=== PATIENT | female | born 1960 | race Caucasian/White ===

== ENCOUNTER → 2016-07-05 | Outpatient (CLI) | payer OTHER ==
--- NOTE | 2016-07-05 15:28 | REPMRS ---
Patient History The patient states she had a clinical breast exam in June 2016. Family history of prostate cancer in father at age 50 or over and colorectal cancer in maternal grandfather at age 50 or over. Taking hormonal contraceptives for 16 years. Digital Mammo Screening Bilat: July 05, 2016 - Exam #: [id number] Bilateral CC and MLO view(s) were taken. Technologist: Deborah Mcarthur, Technologist Prior study comparison: June 28, 2015, bilateral digital mammo screening bilat performed at [facility]. June 24, 2014, bilateral digital mammo screening bilat performed at [facility]. FINDINGS: The breast tissue is heterogeneously dense. This may lower the sensitivity of mammography. There has been no change in the appearance of the mammogram from the prior studies. There is a moderate amount of dense residual fibroglandular tissue which is fairly symmetric. There is no interval development of dominant mass, architectural distortion, or clustered microcalcification typical of malignancy. Scattered lymph nodes are seen in the left axilla. No significant changes when compared with prior studies. ASSESSMENT: BI-RADS/ACR category 2 mammogram. Benign finding(s). Recommendation Routine screening mammogram in 1 year (for women over age 40). This mammogram was interpreted with the aid of an FDA-approved computer-aided dectection system. A. Negative x-ray reports should not delay biopsy if a dominant or clinically suspicious mass is present. B. Four to eight percent of cancers are not identified by mammography. C. Adenosis and dense breast may obscure an underlying neoplasm. Electronically Signed By: Will Carranza MD 07/05/16 1400
== END ==
LOC: M RAD 14:10
PROVIDERS: ATTEND Nurse Practitioner Women's Health
DX: Z12.31 Encounter for screening mammogram for malignant neoplasm of breast (principal)

== ENCOUNTER → 2016-07-07 | Outpatient (CLI) | payer OTHER ==
[2016-07-07 20:00] LABS: FOLLICLE STIMULATING HORMONE 2.4 mIU/mL; LUTEINIZING HORMONE 0.6 mIU/mL
== END ==
LOC: M WUC 15:54
PROVIDERS: ATTEND Nurse Practitioner Women's Health
DX: N91.4 Secondary oligomenorrhea (principal); Z30.41 Encounter for surveillance of contraceptive pills

== ENCOUNTER → 2016-09-04 | Outpatient (CLI) | payer OTHER | LOC: M LAB 13:14 | PROVIDERS: ATTEND Physician Assistant | DX: N39.0 Urinary tract infection, site not specified (principal) ==

== ENCOUNTER → 2017-05-27 | Outpatient (REF) | payer OTHER ==
[2017-05-27 17:06] LABS: APPEARANCE, URINE MANUAL TURBID (CLEAR); BILIRUBIN, URINE MANUAL NEGATIVE (NEGATIVE); BLOOD URINE MANUAL POSITIVE (NEGATIVE); COLOR, URINE MANUAL BROWN (YELLOW); GLUCOSE, URINE (UA) MANUAL NEGATIVE (NEGATIVE); KETONE, URINE MANUAL NEGATIVE (NEGATIVE); LEUKOCYTE ESTERASE, URINE MAN POSITIVE (NEGATIVE); MICROSCOPIC INDICATED? MAN YES (NO); NITRITE, URINE MANUAL NEGATIVE (NEGATIVE); PROTEIN, URINE MANUAL 2+ mg/dL (NEGATIVE); SPECIFIC GRAVITY,URINE MANUAL 1.025 (1.002-1.035); UROBILINOGEN, URINE MANUAL NORMAL (NORMAL)
[2017-05-27 17:07] LABS: BACTERIA, URINE SMALL AMOUNT; HYALINE CAST, URINE NONE SEEN /lpf (0-1); RBC, URINE TNTC /hpf (0-3); SQUAMOUS EPITHELIAL CELL URINE SMALL AMOUNT /hpf (SMALL AMT); WBC, URINE TNTC /hpf (0-3)
[2017-05-27 17:08] LABS: MICROSCOPIC EXAM PERFORMED
== END ==
LOC: M LAB REF 09:06
DX: N39.0 Urinary tract infection, site not specified (principal)

== ENCOUNTER → 2017-07-05 | Outpatient (CLI) | payer OTHER | LOC: M RAD 14:04 | DX: Z12.31 Encounter for screening mammogram for malignant neoplasm of breast (principal); Z79.3 Long term (current) use of hormonal contraceptives; R92.8 Other abnormal and inconclusive findings on diagnostic imaging of breast | CPT/HCPCS: 77067 ==

== ENCOUNTER → 2017-08-07 | Outpatient (CLI) | payer OTHER ==
[2017-08-07 20:07] LABS: HEMATOCRIT 41.2 % (36.0-47.0); HEMOGLOBIN 13.9 g/dl (12.0-15.5); MEAN CORPUSCULAR HEMOGLOBIN 30.2 pg (27.0-33.0); MEAN CORPUSCULAR HGB CONC 33.7 g/dl (32.0-36.5); MEAN CORPUSCULAR VOLUME 89.6 fl (80.0-96.0); PLATELET COUNT, AUTOMATED 241 10^3/uL (150-450); RED CELL DISTRIBUTION WIDTH 12.3 % (11.5-14.5); WHITE BLOOD COUNT 6.9 10^3/uL (4.0-10.0)
[2017-08-07 20:15] LABS: INR 0.93; PROTHROMBIN TIME 12.5 SECONDS (12.4-14.5)
[2017-08-07 20:40] LABS: ANION GAP 8 MEQ/L (8-16); BLOOD UREA NITROGEN 16 MG/DL (7-18); CALCIUM LEVEL 8.6 MG/DL (8.5-10.1); CARBON DIOXIDE LEVEL 29 MEQ/L (21-32); CHLORIDE LEVEL 105 MEQ/L (98-107); CREATININE FOR GFR 0.72 MG/DL (0.55-1.30); GLOMERULAR FILTRATION RATE > 60.0 (>51); GLUCOSE, FASTING 103 MG/DL (70-100); POTASSIUM SERUM 4.1 MEQ/L (3.5-5.1); SODIUM LEVEL 142 MEQ/L (136-145)
== END ==
LOC: M WUC 16:53
DX: I80.3 Phlebitis and thrombophlebitis of lower extremities, unspecified (principal)
CPT/HCPCS: 80048

== ENCOUNTER → 2017-10-14 | Outpatient (REF) | payer OTHER | LOC: M LAB REF 15:00 | DX: N39.0 Urinary tract infection, site not specified (principal) ==

== ENCOUNTER → 2018-07-11 | Outpatient (CLI) | payer OTHER ==
[2018-07-11 17:40] LABS: FOLLICLE STIMULATING HORMONE 52.3 mIU/mL; LUTEINIZING HORMONE 17.5 mIU/mL
== END ==
LOC: M WUC 14:54
PROVIDERS: ATTEND Nurse Practitioner Women's Health
DX: N91.2 Amenorrhea, unspecified (principal); Z30.41 Encounter for surveillance of contraceptive pills

== ENCOUNTER → 2018-07-11 | Outpatient (CLI) | payer OTHER ==
--- NOTE | 2018-07-11 13:25 | REPMRS ---
Patient History The patient states she has not had a clinical breast exam in over a year. Family history of prostate cancer at age 50 or over in father, colorectal cancer at age 50 or over in maternal grandfather. Taking hormonal contraceptives for 16 years. 3D TOMOSYNTHESIS WAS PERFORMED. Digital Mammo Screening Bilat: July 11, 2018 - Exam #: [id number] Bilateral CC and MLO view(s) were taken. Technologist: Deborah Mcarthur, Technologist Prior study comparison: July 05, 2017, bilateral digital mammo screening bilat performed at [facility]. July 05, 2016, bilateral digital mammo screening bilat performed at [facility]. FINDINGS: The breast tissue is heterogeneously dense. This may lower the sensitivity of mammography. There has been no change in the appearance of the mammogram from the prior studies. There is a moderate amount of residual fibroglandular tissue which is fairly symmetric. There is no interval development of dominant mass, areas of architectural distortion, or clustered microcalcification typical of malignancy. Assessment: BI-RADS/ACR category 1 mammogram. Negative Mammogram. Recommendation Routine screening mammogram in 1 year (for women over age 40). This mammogram was interpreted with the aid of an FDA-approved computer-aided dectection system. Electronically Signed By: Bart Gudino MD 07/11/18 [id number]
== END ==
LOC: M RAD 12:55
PROVIDERS: ATTEND Nurse Practitioner Women's Health
DX: Z12.31 Encounter for screening mammogram for malignant neoplasm of breast (principal); Z80.42 Family history of malignant neoplasm of prostate; Z80.0 Family history of malignant neoplasm of digestive organs

== ENCOUNTER → 2019-09-26 | Outpatient (CLI) | payer OTHER ==
--- NOTE | 2019-09-29 09:18 | REPMRS ---
Patient History The patient states she had a clinical breast exam in July 2019. Family history of prostate cancer at age 50 or over in father, colorectal cancer at age 50 or over in maternal grandfather. Taking hormonal contraceptives for 16 years. 3D TOMOSYNTHESIS WAS PERFORMED. The [place] lifetime risk for breast cancer is 6.4%. TRACIE Mahan. Digital Woman Screen Mammo: September 26, 2019 - Exam #: [id number] Bilateral CC and MLO view(s) were taken. Technologist: Trudy Reinoso, Technologist Prior study comparison: July 11, 2018, bilateral digital mammo screening bilat, performed at [facility]. July 05, 2017, bilateral digital mammo screening bilat, performed at [facility]. FINDINGS: The breast tissue is heterogeneously dense. This may lower the sensitivity of mammography. There has been no change in the appearance of the mammogram from the prior studies. There is a moderate amount of residual fibroglandular tissue which is fairly symmetric. There is no interval development of dominant mass, areas of architectural distortion, or clustered microcalcification typical of malignancy. Assessment: BI-RADS/ACR category 1 mammogram. Negative Mammogram. Recommendation Routine screening mammogram in 1 year (for women over age 40). This mammogram was interpreted with the aid of an FDA-approved computer-aided dectection system. Electronically Signed By: Bart Gudino MD 09/29/19 0917
== END ==
LOC: M WHC 13:21
PROVIDERS: ATTEND Obstetrics & Gynecology
DX: Z12.31 Encounter for screening mammogram for malignant neoplasm of breast (principal); Z80.0 Family history of malignant neoplasm of digestive organs; Z80.42 Family history of malignant neoplasm of prostate

== ENCOUNTER → 2020-03-29 | Outpatient (REF) | payer OTHER ==
[2020-03-29 11:49] LABS: MAU/CREAT RATIO 177.9 MCG/MG (0.0-30.0)
== END ==
LOC: M WUC 09:56
PROVIDERS: ATTEND Nurse Practitioner Family
DX: R80.9 Proteinuria, unspecified (principal)

== ENCOUNTER → 2020-09-28 | Outpatient (CLI) | payer OTHER ==
--- NOTE | 2020-09-28 13:13 | REPMRS ---
Patient History The patient states she had a clinical breast exam in September 2020. Family history of prostate cancer at age 50 or over in father, colorectal cancer at age 50 or over in maternal grandfather. Taking hormonal contraceptives for 16 years. No breast complaints today Patient signed the MRS sheet 1st covid vaccine 05/20/20-left arm-Moderna 2nd covid vaccine 06/17/20-left arm Priors on PACS Patient Identification Verified Digital Woman Screen Mammo: September 28, 2020 - Exam #: [id number] Bilateral CC and MLO view(s) were taken. Technologist: Deborah Mcarthur, Technologist Prior study comparison: September 26, 2019, bilateral digital woman screen mammo performed at [facility]. July 11, 2018, bilateral digital mammo screening bilat, performed at [facility]. July 05, 2017, bilateral digital mammo screening bilat, performed at [facility]. FINDINGS: There are scattered fibroglandular densities. The Volpara volumetric breast density category is:B. There has been no change in the appearance of the mammogram from the prior studies. There is a mild amount of scattered fibroglandular density which is fairly symmetric. There is no interval development of dominant mass, architectural distortion, or grouped microcalcification suggestive of malignancy. 3-D tomosynthesis shows no additional findings. Assessment: BI-RADS/ACR category 1 mammogram. Negative Mammogram. Recommendation Routine screening mammogram of both breasts in 1 year (for women over age 40). This patient's [facility] Lifetime Breast Cancer Risk is estimated at 6.3 %. This mammogram was interpreted with the aid of an FDA-approved computer-aided dectection system. Electronically Signed By: Ghanshyam Sanchez MD 09/28/20 0600
== END ==
LOC: M WHC 12:27
PROVIDERS: ATTEND Obstetrics & Gynecology
DX: Z12.31 Encounter for screening mammogram for malignant neoplasm of breast (principal)

== ENCOUNTER → 2021-10-05 | Outpatient (CLI) | payer OTHER | LOC: M WHC 06:51 | PROVIDERS: ATTEND Obstetrics & Gynecology | DX: Z12.31 Encounter for screening mammogram for malignant neoplasm of breast (principal) ==

== ENCOUNTER → 2022-10-06 | Outpatient (CLI) | payer OTHER | LOC: M WHC 13:17 | PROVIDERS: ATTEND Nurse Practitioner Family | DX: Z12.31 Encounter for screening mammogram for malignant neoplasm of breast (principal) ==

== ENCOUNTER → 2023-06-04 | Outpatient (CLI) | payer OTHER ==
[2023-06-04 07:34] LABS: BASO % 0.3 % (0.0-1.0); EOS # 0.2 10^3/uL (0.0-0.5); EOS % 4.1 % (0.0-3.0); HEMATOCRIT 38.9 % (36.0-47.0); HEMOGLOBIN 13.1 g/dl (12.0-15.5); LYMPH # 1.4 10^3/uL (1.5-5.0); LYMPH % 23.9 % (24.0-44.0); MEAN CORPUSCULAR HGB CONC 33.7 g/dl (32.0-36.5); MEAN CORPUSCULAR VOLUME 89.2 fl (80.0-96.0); MONO # 0.4 10^3/uL (0.0-0.8); MONO % 7.5 % (2.0-8.0); NEUTROPHILS # 3.8 10^3/uL (1.5-8.5); PLATELET COUNT, AUTOMATED 224 10^3/uL (150-450); RED BLOOD COUNT 4.36 10^6/uL (4.00-5.40); WHITE BLOOD COUNT 5.9 10^3/uL (4.0-10.0)
[2023-06-04 08:02] LABS: ALBUMIN 3.8 G/DL (3.2-5.2); ALKALINE PHOSPHATASE 89 U/L (46-116); ALT/SGPT 20 U/L (7.0-40); AST/SGOT 19 U/L (<34); BILIRUBIN,TOTAL 1.4 MG/DL (0.3-1.2); BLOOD UREA NITROGEN 13 MG/DL (9-23); CALCIUM LEVEL 9.1 MG/DL (8.3-10.6); CARBON DIOXIDE LEVEL 32 MMOL/L (20-31); CHLORIDE LEVEL 106 MMOL/L (98-107); CHOLESTEROL LEVEL 223 MG/DL (<200); CHOLESTEROL RISK RATIO 3.43 (<5); CREATININE FOR GFR 0.61 MG/DL (0.55-1.30); GLOMERULAR FILTRATION RATE > 60.0 (>45); GLUCOSE, FASTING 99 MG/DL (74-106); LDL CHOLESTEROL 136.4 MG/DL (<100); POTASSIUM SERUM 3.9 MMOL/L (3.5-5.1); SODIUM LEVEL 141 MMOL/L (136-145); TOTAL PROTEIN 6.6 G/DL (5.7-8.2); TRIGLYCERIDES LEVEL 108 MG/DL (<150)
[2023-06-04 08:03] LABS: FREE T4 0.99 NG/DL (0.89-1.76); THYROID STIMULATING HORMONE 3.682 uIU/ML (0.55-4.78); TOTAL 25(OH) VITAMIN D 24.5 NG/ML (20.0-100.0)
== END ==
LOC: M LAB 06:25
PROVIDERS: ATTEND Nurse Practitioner Family
DX: Z00.00 Encounter for general adult medical examination without abnormal findings (principal)

== ENCOUNTER → 2023-06-06 | Outpatient (CLI) | payer OTHER | LOC: M PLAIMG 15:56 | PROVIDERS: ATTEND Nurse Practitioner Family | DX: R05.9 Cough, unspecified (principal) ==

== ENCOUNTER → 2023-10-17 | Outpatient (REF) | payer OTHER ==
[2023-10-19 17:48] LABS: HPV APTIMA Not Detected (Not Detected)
== END ==
LOC: M SMT 13:00
PROVIDERS: ATTEND Nurse Practitioner Family
DX: Z12.4 Encounter for screening for malignant neoplasm of cervix (principal)
CPT/HCPCS: 87624; G0123

== ENCOUNTER → 2023-10-17 | Outpatient (CLI) | payer OTHER | LOC: M WHC 08:30 | PROVIDERS: ATTEND Nurse Practitioner Family | DX: Z12.31 Encounter for screening mammogram for malignant neoplasm of breast (principal) ==

== ENCOUNTER → 2024-05-23 | Outpatient (REF) | payer OTHER ==
[2024-05-23 14:06] LABS: BASO % 0.5 % (0.0-1.0); EOS # 0.1 10^3/uL (0.0-0.5); EOS % 2.2 % (0.0-3.0); HEMATOCRIT 41.2 % (36.0-47.0); HEMOGLOBIN 13.8 g/dl (12.0-15.5); LYMPH % 34.6 % (24.0-44.0); MEAN CORPUSCULAR HEMOGLOBIN 30.1 pg (27.0-33.0); MEAN CORPUSCULAR HGB CONC 33.5 g/dl (32.0-36.5); MONO # 0.5 10^3/uL (0.0-0.8); MONO % 8.9 % (2.0-8.0); NEUTROPHILS # 3.1 10^3/uL (1.5-8.5); NEUTROPHILS % 53.6 % (36.0-66.0); PLATELET COUNT, AUTOMATED 223 10^3/uL (150-450); RED BLOOD COUNT 4.58 10^6/uL (4.00-5.40); WHITE BLOOD COUNT 5.8 10^3/uL (4.0-10.0)
[2024-05-23 14:15] LABS: ALBUMIN 3.9 G/DL (3.2-5.2); ALKALINE PHOSPHATASE 79 U/L (35-104); ALT/SGPT 24 U/L (7.0-40); AST/SGOT 21 U/L (<34); BILIRUBIN,TOTAL 1.6 MG/DL (0.3-1.2); BLOOD UREA NITROGEN 18 MG/DL (9-23); CALCIUM LEVEL 9.3 MG/DL (8.3-10.6); CARBON DIOXIDE LEVEL 31 MMOL/L (20-31); CHLORIDE LEVEL 103 MMOL/L (98-107); CHOLESTEROL LEVEL 263 MG/DL (<200); CHOLESTEROL RISK RATIO 2.83 (<5); CREATININE FOR GFR 0.56 MG/DL (0.55-1.30); GLOMERULAR FILTRATION RATE > 60.0 (>45); GLUCOSE, FASTING 98 MG/DL (74-106); HDL CHOLESTEROL 92.8 MG/DL (>40); LDL CHOLESTEROL 154.8 MG/DL (<100); NON-HDL-C 170.2 MG/DL; POTASSIUM SERUM 4.1 MMOL/L (3.5-5.1); SODIUM LEVEL 142 MMOL/L (136-145); TOTAL PROTEIN 7.2 G/DL (5.7-8.2); TRIGLYCERIDES LEVEL 77 MG/DL (<150)
== END ==
LOC: M LABDRWAD 13:22
PROVIDERS: ATTEND Nurse Practitioner Family
DX: Z00.00 Encounter for general adult medical examination without abnormal findings (principal)